=== PATIENT | male | born 1970 | race Caucasian/White ===

== ENCOUNTER 2018-07-09 10:22 | Inpatient (IN) | payer MEDICAID ==
[2018-07-09] MEDS: KETOROLAC 60 MG INJ IM (12:05)
[2018-07-09] MEDS: ONDANSETRON (ODT) 4 MG TAB ODT (12:05)
[2018-07-09] MEDS: OXYCODONE/ACETAMINOPHEN (10/325) TAB PO (12:31)
[2018-07-09] MEDS: PROPOFOL 200 MG INJ IV (16:57)
[2018-07-09] MEDS: BUPIVACAINE 0.5% (SDV) 30 ML INJ INJ (16:57)
[2018-07-09] MEDS: LIDOCAINE 1% (MPF) 30 ML INJ INJ (18:28)
[2018-07-09] MEDS: ONDANSETRON 4 MG INJ IV ×2 (18:38→19:49)
[2018-07-09] MEDS: HYDROmorphONE 1 MG/ML SYG IV (18:38)
[2018-07-09 19:19] LABS: ADD MAN DIFF? NO
[2018-07-09 19:26] LABS: WHITE BLOOD COUNT 11.9 10^3/ul (4.8-10.8)
[2018-07-09 19:26] LABS: BASOPHILS % 0.3 % (0.0-2.0); EOSINOPHILS % 0.1 % (0.0-7.0); HEMATOCRIT 43.4 % (42.0-52.0); HEMOGLOBIN 14.6 g/dl (14.0-18.0); LYMPHOCYTES # 1.6 10^3/ul (0.8-2.9); LYMPHOCYTES % 13.5 % (15.0-51.0); MEAN CORPUSCULAR HEMOGLOBIN 30.1 pg (29.0-33.0); MEAN CORPUSCULAR HGB CONC 33.6 g/dl (32.0-37.0); MEAN CORPUSCULAR VOLUME 89.5 fl (82.0-101.0); MEAN PLATELET VOLUME 8.7 fl (7.4-10.4); MONOCYTE # 0.9 10^3/ul (0.3-0.9); MONOCYTES % 7.7 % (0.0-11.0); NEUTROPHIL # 9.3 10^3/ul (1.6-7.5); NEUTROPHILS % 78.1 % (39.0-77.0); PLATELET COUNT 247 10^3/UL (140-415); RED BLOOD COUNT 4.85 10^6/ul (4.70-6.10); RED CELL DISTRIBUTION WIDTH 12.8 % (11.5-14.5)
[2018-07-09 19:41] LABS: INR 0.96; PARTIAL THROMBOPLASTIN TIME 23.5 Sec (23.0-35.0); PROTIME 12.9 Sec (11.9-14.9)
[2018-07-09 19:43] LABS: ALANINE AMINOTRANSFERASE 47 IU/L (13-69); ALBUMIN 4.4 g/dl (3.3-4.9); ALBUMIN/GLOBULIN RATIO 1.37; ALKALINE PHOSPHATASE 108 IU/L (42-121); ANION GAP 11 (5-13); ASPARTATE AMINO TRANSFERASE 55 IU/L (15-46); BILIRUBIN,INDIRECT 0.4 mg/dl (0-1.1); BILIRUBIN,TOTAL 0.4 mg/dl (0.2-1.3); BLOOD UREA NITROGEN 15 mg/dl (7-20); CALCIUM 9.7 mg/dl (8.4-10.2); CARBON DIOXIDE 25 mmol/L (21-31); CHLORIDE 105 mmol/L (97-110); CREATININE 0.79 mg/dl (0.61-1.24); Estimated GFR > 60 mL/min (>60); GLUCOSE 114 mg/dl (70-220); POTASSIUM 4.9 mmol/L (3.5-5.1); SODIUM 141 mmol/L (135-144); TOTAL PROTEIN 7.6 g/dl (6.1-8.1)
[2018-07-09] MEDS: SOD CHLORIDE 0.9% 1,000 ML IV (19:49)
[2018-07-09] MEDS ORDERED: ACETAMINOPHEN 325 MG TAB PO ×2 (20:00→23:30)
[2018-07-09] MEDS ORDERED: ONDANSETRON 4 MG INJ IV (20:00)
[2018-07-09] MEDS: morphine 4 MG/ML VIAL IV (22:19)
[2018-07-09] MEDS ORDERED: HYDROCODONE/APAP (5/325) TAB PO (23:30)
[2018-07-09] MEDS ORDERED: NACL 0.9% 3 ML SYG IV (23:30)
[2018-07-10] MEDS: HYDROCODONE/APAP (5/325) TAB PO (00:39)
[2018-07-10 05:25] LABS: ADD MAN DIFF? NO
[2018-07-10 05:33] LABS: WHITE BLOOD COUNT 8.1 10^3/ul (4.8-10.8)
[2018-07-10 05:33] LABS: BASOPHIL # 0.1 10^3/ul (0.0-0.1); BASOPHILS % 0.6 % (0.0-2.0); EOSINOPHILS # 0.1 10^3/ul (0.0-0.5); EOSINOPHILS % 1.1 % (0.0-7.0); HEMATOCRIT 39.2 % (42.0-52.0); HEMOGLOBIN 13.2 g/dl (14.0-18.0); LYMPHOCYTES # 1.8 10^3/ul (0.8-2.9); LYMPHOCYTES % 22.7 % (15.0-51.0); MEAN CORPUSCULAR HEMOGLOBIN 30.3 pg (29.0-33.0); MEAN CORPUSCULAR HGB CONC 33.7 g/dl (32.0-37.0); MEAN CORPUSCULAR VOLUME 90.1 fl (82.0-101.0); MEAN PLATELET VOLUME 8.9 fl (7.4-10.4); MONOCYTE # 0.9 10^3/ul (0.3-0.9); NEUTROPHIL # 5.2 10^3/ul (1.6-7.5); NEUTROPHILS % 64.2 % (39.0-77.0); PLATELET COUNT 229 10^3/UL (140-415); RED BLOOD COUNT 4.35 10^6/ul (4.70-6.10); RED CELL DISTRIBUTION WIDTH 13.2 % (11.5-14.5)
[2018-07-10 05:55] LABS: ALANINE AMINOTRANSFERASE 41 IU/L (13-69); ALBUMIN 3.5 g/dl (3.3-4.9); ALBUMIN/GLOBULIN RATIO 1.25; ALKALINE PHOSPHATASE 78 IU/L (42-121); ANION GAP 8 (5-13); ASPARTATE AMINO TRANSFERASE 45 IU/L (15-46); BILIRUBIN,INDIRECT 0.3 mg/dl (0-1.1); BILIRUBIN,TOTAL 0.3 mg/dl (0.2-1.3); BLOOD UREA NITROGEN 16 mg/dl (7-20); CALCIUM 8.7 mg/dl (8.4-10.2); CARBON DIOXIDE 24 mmol/L (21-31); CHLORIDE 106 mmol/L (97-110); CREATININE 0.85 mg/dl (0.61-1.24); Estimated GFR > 60 mL/min (>60); GLUCOSE 113 mg/dl (70-220); PHOSPHORUS 4.1 mg/dl (2.5-4.9); SODIUM 138 mmol/L (135-144); TOTAL PROTEIN 6.3 g/dl (6.1-8.1)
[2018-07-10] MEDS: POLYMYXIN/BACITRACIN 1L IRRIG IRR (07:04)
[2018-07-10] MEDS ORDERED: FENTAnyl 50 MCG/ML VIAL ×2 (07:42→10:14)
[2018-07-10] MEDS ORDERED: MIDAZOLAM 1 MG/ML 2 ML INJ (07:42)
[2018-07-10] MEDS ORDERED: BUPIVACAINE 0.5% (SDV) 30 ML INJ (07:43)
[2018-07-10] MEDS ORDERED: PROPOFOL 20 ML (08:35)
[2018-07-10] MEDS ORDERED: ROCURONIUM 50 MG INJ (08:35)
[2018-07-10] MEDS ORDERED: CEFAZOLIN 1 GM INJ (08:35)
[2018-07-10] MEDS ORDERED: LIDOCAINE 2% (SDV) 5 ML INJ (08:35)
[2018-07-10] MEDS ORDERED: LABETALOL HCL 20MG INJ (11:46)
[2018-07-10] MEDS ORDERED: KETOROLAC 30 MG INJ (12:45)
[2018-07-10] MEDS ORDERED: DEXAMETHASONE 4 MG/ML 5 ML INJ (12:46)
[2018-07-10] MEDS ORDERED: ONDANSETRON 4 MG INJ (12:46)
[2018-07-10] MEDS: FENTAnyl 50 MCG/ML VIAL IV ×2 (13:57→14:09)
[2018-07-10] MEDS ORDERED: NA PHOSPHATE/BIPHOS 133 ML ENEMA PR (14:00)
[2018-07-10] MEDS ORDERED: HYDROmorphONE 1 MG/5 ML IV SYRINGE IV ×3 (14:00)
[2018-07-10] MEDS ORDERED: ONDANSETRON 4 MG INJ IV (14:00)
[2018-07-10] MEDS ORDERED: LABETALOL HCL 20MG INJ IV (14:00)
[2018-07-10] MEDS ORDERED: ALBUTEROL 0.083% (NEB) 2.5 MG/3 ML AMP HHN (14:00)
[2018-07-10] MEDS ORDERED: KETOROLAC 30 MG INJ IV (14:00)
[2018-07-10] MEDS ORDERED: FENTAnyl 50 MCG/ML VIAL IV ×2 (14:00)
[2018-07-10] MEDS ORDERED: MEPERIDINE 25 MG INJ IV (14:00)
[2018-07-10] MEDS ORDERED: NACL 0.9% 3 ML SYG IV (14:00)
[2018-07-10] MEDS ORDERED: SENNA/DOCUSATE NA (8.6MG/50MG) TAB PO (14:00)
[2018-07-10] MEDS ORDERED: OXYCODONE/ACETAMINOPHEN (5/325) TAB PO ×2 (14:00)
[2018-07-10] MEDS ORDERED: hydrALAzine 20 MG INJ IV (14:00)
[2018-07-10] MEDS ORDERED: MIDAZOLAM 1 MG/ML 2 ML INJ IV (14:00)
[2018-07-10] MEDS ORDERED: EPHEDrine SULFATE 50 MG/5 ML SYG IV (14:00)
[2018-07-10] MEDS ORDERED: BISACODYL 10 MG SUPP PR (14:00)
[2018-07-10] MEDS ORDERED: DIPHENHYDRAMINE 50 MG INJ IV ×2 (14:00)
[2018-07-10] MEDS ORDERED: NALOXONE (0.4 MG/ML) INJ IV (14:00)
[2018-07-10] MEDS ORDERED: oxyCODONE 5 MG TAB PO (14:00)
[2018-07-10] MEDS: LACTATED RINGER'S 1,000 ML IV (14:15)
[2018-07-10] MEDS: DOCUSATE SODIUM 100 MG CAP PO (14:19)
[2018-07-10] MEDS: ACETAMINOPHEN 500 MG TAB PO ×2 (14:20→22:00)
[2018-07-10] MEDS: CEFAZOLIN 2 GM/50 ML (PMX) 50 ML IVPB ×2 (15:22→20:51)
[2018-07-10] MEDS: ONDANSETRON 4 MG INJ IV (15:57)
[2018-07-10] MEDS: oxyCODONE 5 MG TAB PO (19:54)
[2018-07-10] MEDS: GABAPENTIN 300 MG CAP PO (20:51)
[2018-07-10] MEDS ORDERED: MAGNESIUM HYDROXIDE 30ML CUP PO (21:00)
[2018-07-11 04:58] LABS: ADD MAN DIFF? NO
[2018-07-11 05:02] LABS: WHITE BLOOD COUNT 12.1 10^3/ul (4.8-10.8)
[2018-07-11 05:02] LABS: BASOPHILS % 0.2 % (0.0-2.0); HEMATOCRIT 39.6 % (42.0-52.0); LYMPHOCYTES # 1.4 10^3/ul (0.8-2.9); LYMPHOCYTES % 11.5 % (15.0-51.0); MEAN CORPUSCULAR HEMOGLOBIN 30.2 pg (29.0-33.0); MEAN CORPUSCULAR HGB CONC 32.8 g/dl (32.0-37.0); MEAN CORPUSCULAR VOLUME 92.1 fl (82.0-101.0); MEAN PLATELET VOLUME 9.1 fl (7.4-10.4); MONOCYTES % 8.4 % (0.0-11.0); NEUTROPHIL # 9.6 10^3/ul (1.6-7.5); NEUTROPHILS % 79.7 % (39.0-77.0); PLATELET COUNT 230 10^3/UL (140-415); RED CELL DISTRIBUTION WIDTH 13.2 % (11.5-14.5)
[2018-07-11] MEDS: LACTATED RINGER'S 1,000 ML IV (05:30)
[2018-07-11 05:34] LABS: ANION GAP 6 (5-13); BLOOD UREA NITROGEN 12 mg/dl (7-20); CALCIUM 9.1 mg/dl (8.4-10.2); CARBON DIOXIDE 29 mmol/L (21-31); CHLORIDE 106 mmol/L (97-110); CREATININE 0.76 mg/dl (0.61-1.24); Estimated GFR > 60 mL/min (>60); GLUCOSE 128 mg/dl (70-220); POTASSIUM 4.9 mmol/L (3.5-5.1); SODIUM 141 mmol/L (135-144)
[2018-07-11] MEDS: ACETAMINOPHEN 500 MG TAB PO ×3 (06:00→21:36)
[2018-07-11 08:20] LABS: ADD MAN DIFF? NO
[2018-07-11 08:23] LABS: WHITE BLOOD COUNT 13.3 10^3/ul (4.8-10.8)
[2018-07-11 08:23] LABS: BASOPHILS % 0.2 % (0.0-2.0); HEMATOCRIT 41.1 % (42.0-52.0); HEMOGLOBIN 13.4 g/dl (14.0-18.0); LYMPHOCYTES # 1.7 10^3/ul (0.8-2.9); LYMPHOCYTES % 12.9 % (15.0-51.0); MEAN CORPUSCULAR HGB CONC 32.6 g/dl (32.0-37.0); MEAN CORPUSCULAR VOLUME 92.2 fl (82.0-101.0); MONOCYTE # 1.3 10^3/ul (0.3-0.9); MONOCYTES % 9.4 % (0.0-11.0); NEUTROPHIL # 10.3 10^3/ul (1.6-7.5); NEUTROPHILS % 77.1 % (39.0-77.0); PLATELET COUNT 234 10^3/UL (140-415); RED BLOOD COUNT 4.46 10^6/ul (4.70-6.10); RED CELL DISTRIBUTION WIDTH 13.2 % (11.5-14.5)
[2018-07-11] MEDS: CEFAZOLIN 2 GM/50 ML (PMX) 50 ML IVPB (08:35)
[2018-07-11] MEDS: ASPIRIN (EC) 81 MG TAB PO ×2 (08:35→21:36)
[2018-07-11] MEDS: DOCUSATE SODIUM 100 MG CAP PO ×2 (08:35→21:35)
[2018-07-11] MEDS: oxyCODONE 5 MG TAB PO ×2 (08:54→15:10)
[2018-07-11] MEDS ORDERED: ASA/ACETAMINOPHEN/CAFF TAB PO (09:00)
[2018-07-11] MEDS: HYDROmorphONE 1 MG/ML SYG IV (10:47)
[2018-07-11] MEDS ORDERED: ONDANSETRON 4 MG INJ IV (14:00)
[2018-07-11] MEDS: GABAPENTIN 300 MG CAP PO (21:36)
[2018-07-12] MEDS: oxyCODONE 5 MG TAB PO ×3 (04:40→17:27)
[2018-07-12 05:17] LABS: ADD MAN DIFF? NO
[2018-07-12 05:24] LABS: BASOPHIL # 0.1 10^3/ul (0.0-0.1); BASOPHILS % 0.6 % (0.0-2.0); EOSINOPHILS # 0.1 10^3/ul (0.0-0.5); HEMATOCRIT 41.1 % (42.0-52.0); HEMOGLOBIN 13.5 g/dl (14.0-18.0); LYMPHOCYTES # 2.4 10^3/ul (0.8-2.9); LYMPHOCYTES % 26.4 % (15.0-51.0); MEAN CORPUSCULAR HEMOGLOBIN 30.1 pg (29.0-33.0); MEAN CORPUSCULAR HGB CONC 32.8 g/dl (32.0-37.0); MEAN CORPUSCULAR VOLUME 91.5 fl (82.0-101.0); MEAN PLATELET VOLUME 9.2 fl (7.4-10.4); MONOCYTE # 0.9 10^3/ul (0.3-0.9); MONOCYTES % 9.7 % (0.0-11.0); NEUTROPHIL # 5.6 10^3/ul (1.6-7.5); NEUTROPHILS % 62.1 % (39.0-77.0); PLATELET COUNT 241 10^3/UL (140-415); RED BLOOD COUNT 4.49 10^6/ul (4.70-6.10); RED CELL DISTRIBUTION WIDTH 13.1 % (11.5-14.5)
[2018-07-12] MEDS: ACETAMINOPHEN 500 MG TAB PO ×2 (05:51→14:15)
[2018-07-12] MEDS: PANTOPRAZOLE (EC) 40 MG TAB PO (05:52)
[2018-07-12 06:39] LABS: ANION GAP 7 (5-13); BLOOD UREA NITROGEN 15 mg/dl (7-20); CALCIUM 8.8 mg/dl (8.4-10.2); CARBON DIOXIDE 29 mmol/L (21-31); CHLORIDE 105 mmol/L (97-110); CREATININE 0.74 mg/dl (0.61-1.24); Estimated GFR > 60 mL/min (>60); GLUCOSE 105 mg/dl (70-220); POTASSIUM 4.5 mmol/L (3.5-5.1); SODIUM 141 mmol/L (135-144)
[2018-07-12] MEDS: DOCUSATE SODIUM 100 MG CAP PO (08:21)
[2018-07-12] MEDS: ASPIRIN (EC) 81 MG TAB PO (08:21)
[2018-07-12] MEDS: HYDROmorphONE 1 MG/ML SYG IV (10:52)
== END 2018-07-12 19:05 | disposition home or self-care (01) | DRG 494 ==
LOC: FTE 10:22 → MS1 19:36
PROC: 0QSK04Z Reposition Left Fibula with Internal Fixation Device, Open Approach (ICD-10-PCS; principal; 2018-07-10 07:30)
PROC: 0QSH04Z Reposition Left Tibia with Internal Fixation Device, Open Approach (ICD-10-PCS; 2018-07-10 07:30)
PROC: 0QSJXZZ Reposition Right Fibula, External Approach (ICD-10-PCS; 2018-07-10 07:45)
PROC: 0QSKXZZ Reposition Left Fibula, External Approach (ICD-10-PCS; 2018-07-10 07:45)
DX: S82.842A Displaced bimalleolar fracture of left lower leg, initial encounter for closed fracture (principal); S92.142A Displaced dome fracture of left talus, initial encounter for closed fracture; W11.XXXA Fall on and from ladder, initial encounter; M25.511 Pain in right shoulder
CPT/HCPCS: 71045; 72100; 72170; 73590; 73610; 73630-LT; 73700; 80048; 80053; 83735; 84100; 85025; 85610; 85730; 93005; 96372; 96374; 96375; 97116; 97161; 97167; 97530; 99285-25

== ENCOUNTER 2018-07-19 08:41 | Emergency (ER) | payer MEDICAID ==
[2018-07-19] MEDS: HYDROCODONE/APAP (5/325) TAB PO (10:38)
== END 2018-07-19 13:12 | disposition home or self-care (01) ==
LOC: FTE 08:41
DX: M79.605 Pain in left leg (principal); Z48.01 Encounter for change or removal of surgical wound dressing
CPT/HCPCS: 99283; Z7502

== ENCOUNTER → 2018-07-26 | Outpatient (CLI) | payer MEDICAID | END | disposition home or self-care (01) | LOC: HKI 10:27 | DX: S82.842D Displaced bimalleolar fracture of left lower leg, subsequent encounter for closed fracture with routine healing (principal); X58.XXXD Exposure to other specified factors, subsequent encounter | CPT/HCPCS: 73610; 73610-LT ==

== ENCOUNTER → 2018-08-23 | Outpatient (CLI) | payer MEDICAID | END | disposition home or self-care (01) | LOC: HKI 10:32 | DX: S82.842D Displaced bimalleolar fracture of left lower leg, subsequent encounter for closed fracture with routine healing (principal); X58.XXXD Exposure to other specified factors, subsequent encounter | CPT/HCPCS: 73610; 73610-LT ==